=== PATIENT | female | born 1980 | race African-American/Black ===

== ENCOUNTER 2016-09-18 00:12 | Emergency (ER) | payer OTHER ==
[2016-09-18] MEDS ORDERED: Ibuprofen 800 MG TAB ONE (00:35)
[2016-09-18] MEDS ORDERED: Acetaminophen 500 MG TAB ONE (00:35)
== END 2016-09-18 00:45 | disposition home or self-care (01) ==
LOC: MADERS 00:12
DX: T14.8 Other injury of unspecified body region (principal); I10 Essential (primary) hypertension; R56.9 Unspecified convulsions; Z79.899 Other long term (current) drug therapy; V89.2XXA Person injured in unspecified motor-vehicle accident, traffic, initial encounter
CPT/HCPCS: 99284

== ENCOUNTER 2016-12-02 16:17 | Emergency (ER) | payer OTHER ==
[2016-12-02 17:36] LABS: ALT (SGPT) 31 U/L (8-55); AST (SGOT) 20 U/L (5-34); Albumin 4.3 g/dL (3.5-5.0); Alkaline Phosphatase 105 U/L (40-150); Anion Gap 15 mmol/L (10-20); BUN (Urea Nitrogen) 12 mg/dL (7.0-18.7); Bilirubin, Total Less than 0.3 mg/dL (0.2-1.2); Calc. Creatinine Clearance 0 mL/min (70-130); Calcium 9.4 mg/dL (7.8-10.44); Carbon Dioxide 27 mmol/L (22-29); Chloride 101 mmol/L (98-107); Estimated GFR-MDRD Greater than 90; Globulin 3.7 g/dL (2.4-3.5); Glucose 103 mg/dL (70-105); Lipase 15 U/L (8-78); Potassium 3.5 mmol/L (3.5-5.1); Sodium 139 mmol/L (136-145)
[2016-12-02 17:38] LABS: CKMB 2.6 ng/mL (0-6.6); Troponin I Less than 0.010 ng/mL (< 0.028)
[2016-12-02] MEDS ORDERED: Benzonatate 100 MG CAP ONE (17:52)
[2016-12-02] MEDS ORDERED: Oxymetazoline HCl 0.05% ( 15 ML ) ONE (17:52)
[2016-12-02] MEDS ORDERED: Lorazepam 2 MG/ML VIAL ONE (17:52)
[2016-12-02 17:53] LABS: Bilirubin Negative (Negative); Blood, Urine Large (Negative); Clarity Clear (Clear); Glucose, Urine (Dipstick) Negative (Negative); Leukocyte Negative (Negative); Nitrite Negative (Negative); Protein, Urine (Dipstick) 100 mg/dL (Neg-Trace); Specific Gravity, Urine 1.015 (1.005-1.030); Urobilinogen 0.2 mg/dL (0.2-1.0)
[2016-12-02 17:57] LABS: Bacteria/HPF Rare-Few HPF (None Seen); RBC/HPF 21-50 HPF (0-3); Squamous Epithelial 0-3 HPF (0-3); WBC/HPF 0-3 HPF (0-3)
[2016-12-02 18:42] LABS: #Basophils 0.1 thou/uL (0.0-0.2); #Eosinphils 0.2 thou/uL (0.0-0.7); #Lymphocytes 2.3 thou/uL (1.20-3.40); #Monocytes 0.4 thou/uL (0.11-0.59); #Neutrophils 5.2 thou/uL (1.40-6.50); %Basophils 1.2 % (0.0-1.0); %Eosinophils 2.3 % (0.0-10.0); %Lymphocytes 28.2 % (21.0-51.0); %Monocytes 4.8 % (0.0-10.0); %Neutrophils 63.4 % (42.0-75.0); Hemoglobin 12.9 g/dL (12.0-16.0); Mean Corpuscular HGB CONC 32.5 g/dL (32.0-36.0); Mean Corpuscular Hemoglobin 28.1 pg (27.0-31.0); Mean Corpuscular Volume 86.4 fl (81.0-99.0); Mean Platelet Volume 6.8 fL (7.4-10.4); Platelet Count 302 thou/uL (130-400); RBC Distribution Width 12.7 % (11.5-14.5); Red Blood Cell (RBC) Count 4.58 mill/uL (4.20-5.40); White Blood Cell (WBC) Count 8.3 thou/uL (4.8-10.8)
--- NOTE | 2016-12-02 19:15 | RAD ---
FRONTAL VIEW CHEST: 12/02/16 COMPARISON: 03/29/15 INDICATION: Seizure. FINDINGS: There is hypoinflation of the lungs. This accentuates the lung base markings and accentuates the car diomediastinal silhouette. Otherwise no significant interval change from 03/29/15 exam. IMPRESSION: Hypoinflated lungs limiting assessment of the lung bases. POS: [facility]
--- NOTE | 2016-12-02 19:18 | CT ---
CERVICAL SPINE CT: 12/02/16 INDICATION: Seizure with fall. Neck injury and pain. FINDINGS: There is no fracture or subluxation. There is reversal of normal cervical lordosis which may be posi tional. Correlate clinically. Craniocervical junction is intact. IMPRESSION: No acute cervical spine fracture. POS: [facility]
--- NOTE | 2016-12-02 19:20 | CT ---
CT OF HEAD NONCONTRAST: 12/02/16 INDICATION: Seizure with fall. FINDINGS: There is normal size of ventricular system. No acute intracranial hemorrhage, mass effect or midline shift. There is scattered paranasal sinus opacification. IMPRESSION: No acute intracranial abnormalities. POS: [facility]
== END 2016-12-02 19:00 | disposition home or self-care (01) ==
LOC: MADERS 16:17
DX: R56.9 Unspecified convulsions (principal); J06.9 Acute upper respiratory infection, unspecified; I10 Essential (primary) hypertension; Z79.899 Other long term (current) drug therapy
CPT/HCPCS: 36415; 70450; 71010; 72125; 80053; 81001; 82553; 83690; 84443; 84484; 85025; 87077; 87086; 96374; J2060

== ENCOUNTER 2017-11-09 13:34 | Emergency (ER) | payer BC, SELFPAY ==
--- NOTE | 2017-11-09 15:10 | RAD ---
RIGHT FOOT THREE VIEWS: History: 37-year-old female with history of right foot pain without trauma. FINDINGS/IMPRESSION: No fracture, dislocation, or other significant acute osseous abnormality. POS: [facility]
== END 2017-11-09 15:16 | disposition home or self-care (01) ==
LOC: MADERS 13:34
DX: S93.601A Unspecified sprain of right foot, initial encounter (principal); I10 Essential (primary) hypertension; G40.409 Other generalized epilepsy and epileptic syndromes, not intractable, without status epilepticus; Z79.899 Other long term (current) drug therapy; X58.XXXA Exposure to other specified factors, initial encounter

== ENCOUNTER 2018-02-12 21:56 | Emergency (ER) | payer BC ==
[2018-02-12 23:03] LABS: Bilirubin Negative (Negative); Blood, Urine Small (Negative); Clarity Clear (Clear); Glucose, Urine (Dipstick) Negative (Negative); Leukocyte Negative (Negative); Nitrite Negative (Negative); Protein, Urine (Dipstick) Negative (Neg-Trace); Specific Gravity, Urine 1.015 (1.005-1.030); Urobilinogen 0.2 mg/dL (0.2-1.0); pH, Urine 6.5 (5.0-9.0)
[2018-02-12 23:08] LABS: Pregnancy Test - Urine (BHCG) Negative (Negative); Specific Gravity 1.015 (1.002-1.036)
[2018-02-12 23:09] LABS: Pregu Control Background? CLEAR/WHITE (CLR/WHITE); Pregu Control Bar Appear? YES (CONTROL BAR)
[2018-02-12 23:12] LABS: Bacteria/HPF None Seen HPF (None Seen); Squamous Epithelial 0-3 HPF (0-3); WBC/HPF 0-3 HPF (0-3)
[2018-02-12 23:21] LABS: ALT (SGPT) 19 U/L (8-55); AST (SGOT) 16 U/L (5-34); Albumin 4.4 g/dL (3.5-5.0); Alkaline Phosphatase 110 U/L (40-150); Anion Gap 14 mmol/L (10-20); BUN (Urea Nitrogen) 14 mg/dL (7.0-18.7); Bilirubin, Total 0.2 mg/dL (0.2-1.2); Calc. Creatinine Clearance 0 mL/min (70-130); Calcium 9.9 mg/dL (7.8-10.44); Carbon Dioxide 31 mmol/L (22-29); Chloride 100 mmol/L (98-107); Estimated GFR-MDRD Greater than 90; Globulin 3.5 g/dL (2.4-3.5); Glucose 81 mg/dL (70-105); Lipase 22 U/L (8-78); Potassium 3.2 mmol/L (3.5-5.1); Protein, Total 7.9 g/dL (6.0-8.3); Sodium 142 mmol/L (136-145)
[2018-02-12 23:25] LABS: Hemoglobin 13.1 g/dL (12.0-16.0); Lymphocytes 21 % (21-51); MDiff Complete? YES; Mean Corpuscular HGB CONC 33.1 g/dL (32.0-36.0); Mean Corpuscular Hemoglobin 28.3 pg (27.0-31.0); Mean Corpuscular Volume 85.5 fL (78.0-98.0); Mean Platelet Volume 6.1 fL (7.4-10.4); Monocytes 2 % (0-10); Neutrophil 61 % (42-75); PLT Morphology Comment Appears Adequate; Platelet Count 350 thou/uL (130-400); RBC Distribution Width 12.2 % (11.5-14.5); RBC Morphology Normal; Reactive Lymphocytes 16 % (0-10); Red Blood Cell (RBC) Count 4.63 mill/uL (4.20-5.40); White Blood Cell (WBC) Count 7.7 thou/uL (4.8-10.8)
[2018-02-12] MEDS ORDERED: Potassium Chloride 20 MEQ TAB ONE (23:37)
== END 2018-02-12 23:46 | disposition home or self-care (01) ==
LOC: MADERS 21:56
DX: K92.1 Melena (principal); E87.6 Hypokalemia; R31.9 Hematuria, unspecified; Z79.899 Other long term (current) drug therapy
CPT/HCPCS: 36415; 80053; 81003; 81015; 81025; 82274; 83690; 85025; 99284

== ENCOUNTER 2018-04-02 18:51 | Emergency (ER) | payer BC | END 2018-04-02 19:30 | disposition home or self-care (01) | LOC: MADERS 18:51 | DX: M79.671 Pain in right foot (principal); I10 Essential (primary) hypertension; Z79.899 Other long term (current) drug therapy | CPT/HCPCS: 99283 ==

== ENCOUNTER 2018-06-20 07:38 | Emergency (ER) | payer BC ==
[2018-06-20] MEDS ORDERED: Famotidine 20 MG TAB ONE (08:29)
[2018-06-20] MEDS ORDERED: Dexamethasone 4 MG TAB ONE (08:29)
[2018-06-20 08:57] LABS: Hemoglobin 12.6 g/dL (12.0-16.0); Mean Corpuscular HGB CONC 31.2 g/dL (32.0-36.0); Mean Corpuscular Volume 86.4 fL (78.0-98.0); Mean Platelet Volume 6.1 fL (7.4-10.4); Platelet Count 310 thou/uL (130-400); Red Blood Cell (RBC) Count 4.69 mill/uL (4.20-5.40); White Blood Cell (WBC) Count 6.6 thou/uL (4.8-10.8)
[2018-06-20 09:02] LABS: ALT (SGPT) 18 U/L (8-55); AST (SGOT) 14 U/L (5-34); Albumin 4.2 g/dL (3.5-5.0); Alkaline Phosphatase 96 U/L (40-150); Anion Gap 17 mmol/L (10-20); BUN (Urea Nitrogen) 17 mg/dL (7.0-18.7); Bilirubin, Total 0.2 mg/dL (0.2-1.2); Calc. Creatinine Clearance 0 mL/min (70-130); Calcium 9.2 mg/dL (7.8-10.44); Carbon Dioxide 23 mmol/L (22-29); Chloride 104 mmol/L (98-107); Estimated GFR-MDRD Greater than 90; Globulin 3.1 g/dL (2.4-3.5); Glucose 105 mg/dL (70-105); Potassium 3.9 mmol/L (3.5-5.1); Protein, Total 7.3 g/dL (6.0-8.3); Sodium 140 mmol/L (136-145)
[2018-06-20 09:08] LABS: Anisocytosis SLIGHT = 6-15 cells (100X) (0-5/hpf); Band 1 % (5-11); Eosinophils 1 % (0-10); Lymphocytes 44 % (21-51); MDiff Complete? YES; Monocytes 5 % (0-10); Neutrophil 49 % (42-75); Platelet Morphology Comment Appears Adequate
== END 2018-06-20 10:00 | disposition home or self-care (01) ==
LOC: MADERS 07:38
DX: T78.40XA Allergy, unspecified, initial encounter (principal); I10 Essential (primary) hypertension; J45.909 Unspecified asthma, uncomplicated; Z79.899 Other long term (current) drug therapy
CPT/HCPCS: 80053; 85025; 99283; J8540

== ENCOUNTER 2019-03-21 18:05 | Emergency (ER) | payer BC ==
[2019-03-21 18:35] LABS: Bilirubin Negative (Negative); Blood, Urine Trace (Negative); Clarity Clear (Clear); Glucose, Urine (Dipstick) Negative (Negative); Leukocyte Negative (Negative); Nitrite Negative (Negative); Protein, Urine (Dipstick) Negative (Neg-Trace); Urobilinogen 0.2 mg/dL (Less than 2)
[2019-03-21 18:41] LABS: Bacteria/HPF Rare-Few HPF (None Seen); RBC/HPF 0-3 HPF (0-3); Squamous Epithelial 0-3 HPF (0-3); WBC/HPF None Seen HPF (0-3)
--- NOTE | 2019-03-21 19:09 | CT ---
CT ABDOMEN NONCONTRAST CT PELVIS NONCONTRAST: (Urolithiasis protocol) DATE: 03/21/2019 HISTORY: 39-year-old female with hematuria and generalized abdominal pain TECHNIQUE: IV injection of iodinated contrast media: None Oral contrast media: None FINDINGS: Other than for urolithiasis, the lack of IV and oral contrast limits the evaluation. Liver: No contour abnormalities. Spleen: No splenomegaly. Pancreas: No contour abnormalities. Adrenals: No mass. Kidneys: No nephrolithiasis or overt hydronephrosis. Ureters: No calculi. Bladder: No calculi. Abdominal aorta: No aneurysm. Small bowel: No dilation. Colon: No adjacent fat stranding. Appendix: No dilation or adjacent fat stranding. Free air: None Free fluid: None Bilateral adnexa are prominent in size, especially the right, measuring approximately 4 x 3 x 3.5 cm. Clips in gallbladder fossa. IMPRESSION: 1. No urolithiasis or obstructive uropathy. 2. Mildly enlarged right ovary. 3. Status post cholecystectomy.
== END 2019-03-21 19:40 | disposition home or self-care (01) ==
LOC: MADERS 18:05
DX: N34.1 Nonspecific urethritis (principal); I10 Essential (primary) hypertension; J45.909 Unspecified asthma, uncomplicated; Z79.899 Other long term (current) drug therapy
CPT/HCPCS: 74176; 81003; 81015; 87086

== ENCOUNTER 2020-02-16 21:20 | Emergency (ER) | payer BC ==
[2020-02-16] MEDS ORDERED: NEOMYCIN-POLYMYXIN-HC EAR SUSP 200 DROP/10 ML BOT ONE (22:01)
== END 2020-02-16 22:10 | disposition home or self-care (01) ==
LOC: MADERS 21:20
DX: H60.92 Unspecified otitis externa, left ear (principal); I10 Essential (primary) hypertension; J45.909 Unspecified asthma, uncomplicated; Z79.899 Other long term (current) drug therapy
CPT/HCPCS: 99282

== ENCOUNTER 2021-03-09 23:39 | Emergency (ER) | payer BC | END 2021-03-10 00:43 | disposition home or self-care (01) | LOC: MADERS 23:39 | DX: K21.9 Gastro-esophageal reflux disease without esophagitis (principal); I10 Essential (primary) hypertension; J45.909 Unspecified asthma, uncomplicated; Z79.899 Other long term (current) drug therapy | CPT/HCPCS: 99283 ==